=== PATIENT | female | born 1950 | race Caucasian/White ===

== ENCOUNTER 2017-12-27 12:48 | Outpatient (CLI) | payer MEDICARE ==
--- NOTE | 2017-12-28 13:43 | Magnetic Resonance Report ---
BILATERAL BREAST MRI WITHOUT AND WITH CONTRAST: 12/27/17 12:48:00 CLINICAL: Newly diagnosed right breast cancer. COMPARISON:Recent mammograms and right breast ultrasound from [facility] and [facility]. TECHNIQUE: Axial 1.0-mm T1 without, axial high resolution 2.0-mm T2 and axial 1.0-mm dynamic Vibrant high-resolution postcontrast T1 fat saturation sequences on a 1.5 Lucila magnet. The examination was performed with an 8 channel dedicated [place] breast coil. Post processing with CAD and subtraction was performed on an [employer] workstation. 20.0 cc of Multihance was injected without incident for the contrast portion of the exam. Consent was obtained prior to the administration of the contrast. FINDINGS: Right: Minimal background parenchymal enhancement. The known cancer is an irregular enhancing mass at 2 o'clock 6.0 cm from the nipple measuring 11.9 x 8.0 x 7.7 mm. It demonstrates heterogeneous enhancement with mixed kinetics, 121% peak enhancement, 14% type I persistent, 56% type II plateau and 30% type III washout waveforms. A biopsy clip is identified adjacent to the mass. No other mass or suspicious enhancement of the right breast. A moderate degree of edema is identified anterior to and within the right pectoral muscle in the upper portion of the breast. No skin thickening of the breast. At least 2 suspicious right axillary lymph nodes. A 2.3 cm lymph node with central fat but asymmetric cortical thickening of 6 mm. A second lymph node measures only 1.6 cm with no central fatty hilum. Left: Minimal background parenchymal enhancement. No mass. However, suspicious stippled non-Mass enhancement in the central breast which extends for a maximum length of 14 mm. There is no mammographic correlate for this lesion. No other suspicious enhancement. A suspicious left level I axillary lymph node has minimal central fat and asymmetric cortical thickening of 7 mm. IMPRESSION: 1. A known 12 mm right breast cancer. 2. Suspicious non-Mass enhancement of the left breast which would be amenable to MRI guided needle biopsy. 3. Bilateral suspicious axillary lymph nodes. RECOMMENDATION: MRI guided needle biopsy of the left breast and bilateral ultrasound guided axillary lymph node biopsies. RIGHT BI-RADS 6 -- Known Cancer LEFT BI-RADS 4 -- Suspicious
== END 2017-12-27 12:49 | disposition home or self-care (01) ==
LOC: SPVIMAG 12:48
PROVIDERS: ATTEND Surgery
DX: C50.911 Malignant neoplasm of unspecified site of right female breast (principal)
CPT/HCPCS: A9577; C8908; 77059

== ENCOUNTER 2018-01-06 13:43 | Outpatient (CLI) | payer MEDICARE ==
--- NOTE | 2018-01-06 16:28 | Ultrasound Report ---
ULTRASOUND GUIDED NEEDLE CORE BIOPSY OF A AXILLARY LYMPH NODE WITH CLIP PLACEMENT : 01/06/18 13:43:00 CLINICAL: Newly diagnosed right breast cancer and suspicious bilateral axillary lymph nodes. COMPARISON :12/27/17 MRI FINDINGS: The procedure was explained to the patient and informed consent was obtained. Ultrasound demonstrated a suspicious lymph node. The skin in the axilla was prepped with Betadine and anesthetized with 1% lidocaine. Ultrasound guided needle core biopsy of the lymph node was performed through a small dermatotomy using 2% lidocaine with epinephrine for deep anesthesia and a 18-gauge Achieve biopsy device. 2 samples were obtained and placed in formalin. A clip was deployed within the lymph node. Hemostasis was achieved with minimal pressure and a sterile dressing was applied. The patient tolerated the procedure well and there were no apparent complications. She was discharged in good condition and was given instructions for wound care and followup. IMPRESSION: Uncomplicated ultrasound-guided needle core biopsy of a left axillary lymph node with clip placement.
== END 2018-01-06 13:44 | disposition home or self-care (01) ==
LOC: SPVWC 13:43
PROVIDERS: ATTEND Surgery
DX: C50.911 Malignant neoplasm of unspecified site of right female breast (principal)
CPT/HCPCS: 38505; 76942; 88305

== ENCOUNTER 2018-08-08 14:17 | Outpatient (CLI) | payer MEDICARE ==
--- NOTE | 2018-08-08 15:11 | Mammography Report ---
Bilateral mammogram: Compared to December 2017. CAD study utilized. Findings Predominance adipose tissue bilaterally. Benign appearing density adjacent to the chest wall without significant interval change. Surgical clips appear stable. Skin thickening probably related to previous surgery/radiation. Left breast appears unremarkable. Impression: Probably benign findings. Six-month followup recommended. BI-RADS CATEGORY: 3 = Probably benign ACR BI-RADS MAMMOGRAPHIC CODES: 0 = Needs additional imaging evaluation; 1 = Negative; 2 = Benign; 3 = Probably benign; 4 = Suspicious; 5 = Malignant; 6 = Known biopsy-proven malignancy COMMENT: 1. Dense breast tissue, i.e., adenosis, fibrocystic changes, etc., may obscure an underlying neoplasm. 2. Approximately 10% of cancers are not detected with mammography. 3. A negative mammography report should not delay biopsy if a clinically suspicious mass is present. COMMENT: Patient follow-up letters are generated in [employer].
== END 2018-08-08 14:18 | disposition home or self-care (01) ==
LOC: SPVWC 14:17
PROVIDERS: ATTEND Surgery
DX: R92.8 Other abnormal and inconclusive findings on diagnostic imaging of breast (principal)
CPT/HCPCS: 77066

== ENCOUNTER 2018-11-24 08:09 | Outpatient (CLI) | payer MEDICARE ==
--- NOTE | 2018-11-24 11:15 | Ultrasound Report ---
ULTRASOUND GUIDED NEEDLE CORE BIOPSY LEFT BREAST WITH CLIP PLACEMENT: 11/24/18 09:30:00 CLINICAL: Palpable left breast mass in a patient with a history of right breast cancer. Dr. Moses identified a mass by ultrasound at 4:30 o'clock 11 cm from the nipple. COMPARISON :11/09/18 mammogram. FINDINGS: The procedure was explained to the patient and informed consent was obtained. Ultrasound demonstrated a heterogeneous mass at 4:30 o'clock 11 cm from the nipple. I marked the breast with a felt tip marker and a time out was called. The skin was prepped with Betadine and anesthetized with 1% lidocaine. Needle core biopsy was performed through a tiny dermatotomy using ultrasound guidance, 2% lidocaine with epinephrine for deep anesthesia and a 14-gauge Achieve biopsy device. 4 cores were obtained and placed in formalin. A clip was deployed within the mass. The patient tolerated the procedure well and there were no apparent complications. Hemostasis was achieved with minimal pressure and a sterile dressing was applied. A post procedure mammogram was not performed since the patient cannot sit up for mammogram. She left the department in good condition and was given instructions for wound care and followup. IMPRESSION: Uncomplicated ultrasound guided needle core biopsy with clip placement left breast.
== END 2018-11-24 08:10 | disposition home or self-care (01) ==
LOC: SPVWC 08:09
PROVIDERS: ATTEND Surgery
DX: N63.23 Unspecified lump in the left breast, lower outer quadrant (principal); R92.1 Mammographic calcification found on diagnostic imaging of breast; N64.89 Other specified disorders of breast; Z85.3 Personal history of malignant neoplasm of breast
CPT/HCPCS: 88305; 88342

== ENCOUNTER 2019-07-24 12:58 | Outpatient (CLI) | payer MEDICARE ==
--- NOTE | 2019-07-24 15:00 | Mammography Report ---
BILATERAL DIGITAL DIAGNOSTIC MAMMOGRAM WITH CAD 07/24/2019 BILATERAL COMPLETE BREAST ULTRASOUND INDICATION: Wheelchair bound with a history of right breast cancer status post partial mastectomy. Sh chasity had an ultrasound-guided left breast biopsy on 11/24/2018 with nonspecific benign pathology. TECHNIQUE: Digital bilateral mammographic imaging was performed with the patient in her wheelchair. Complete ultrasound of all four (4) quadrants was performed. This examination was interpreted with dee gaspar benefit of Computer-Aided Detection (CAD) analysis. COMPARISON: 11/09/2018 bilateral mammogram and 11/24/2018 left breast ultrasound FINDINGS: Breast Density: The breasts are heterogeneously dense, which may obscure small masses. MAMMOGRAPHIC FINDINGS: There is no evidence of dominant mass, suspicious calcifications or architectu ral distortion in either breast. Extensive bilateral benign calcifications. Right inner postsurgical scar with surgical clips. ULTRASOUND FINDINGS: Complete sonographic evaluation of all 4 quadrants and retroareolar region was p erformed. Ultrasound of the right breast demonstrated an irregular solid hypoechoic shadowing mass with calcifications at 11:00 5 cm from the nipple. It measures 6 x 4 x 3 mm and appears to correlate with a heavily calcified mass on the mammogram. No other significant finding of the right breast. Ult rasound of the left breast demonstrated a palpable bilobed solid heterogeneous hypoechoic shadowing m ass at 4:00 11 cm from the nipple. This correlates with the palpable mass which was previously biopsi ed. However, it appears more masslike on this exam and measures approximately 2.3 x 1.6 cm. There velma eared to be associated calcifications. This mass is so far posterior that it is not likely apparent o n the mammogram. There is a possible biopsy clip adjacent to it. IMPRESSION: 1. A suspicious shadowing palpable left breast mass at 4:00 11 cm from the nipple. This may or may no t represent the lesion that was previously biopsied. Recommend ultrasound-guided needle core biopsy. 2. Negative right breast. Follow up recommendation: Biopsy BI-RADS Category 4: Suspicious for Malignancy. A "normal" or negative report should not discourage follow up or biopsy of a clinically significant f inding. A written summary of these findings will be mailed to the patient. The patient will be entered into a mammography reporting system which will generate a reminder letter for the patient's next appointmen t at the appropriate interval. According to the [employer], yearly mammograms are recommended starting at age 40 and continuing as long as a woman is in good health. Breast MRI is recommended for women with an velma roximately 20-25% or greater lifetime risk of breast cancer, including women with a strong family his tory of breast or ovarian cancer and women who have been treated for Hodgkin's disease. Signer Name: Justo Walker MD Signed: 07/24/2019 2:55 PM Workstation Name: [id number]
== END 2019-07-24 12:59 | disposition home or self-care (01) ==
LOC: SPVWC 12:58
PROVIDERS: ATTEND Surgery
DX: N63.11 Unspecified lump in the right breast, upper outer quadrant (principal); Z90.11 Acquired absence of right breast and nipple
CPT/HCPCS: 77066

== ENCOUNTER 2019-08-09 09:15 | Outpatient (CLI) | payer MEDICARE ==
--- NOTE | 2019-08-09 11:10 | Ultrasound Report ---
ULTRASOUND-GUIDED NEEDLE CORE BIOPSY AT 2 SITES RIGHT BREAST WITH CLIP PLACEMENT CLINICAL: Solid hypoechoic shadowing masses at 9:00 10 cm from the nipple and at 8:00 13 cm from the nipple. FINDINGS: The procedure was explained to the patient and informed consent was obtained. Ultrasound demonstrated the masses identified by Dr. Moses. I marked the breast with a felt tip marker and a timeout was called. The skin was prepped with Chloro -Prep and anesthetized with 1% lidocaine at both sites. Needle core biopsies were performed through small dermatotomies using ultrasound guidance, 2% lidocai ne with epinephrine for deep anesthesia and a 14-gauge Achieve biopsy device. The mass at 9:00 was sa mpled first and labeled as #1. 4 cores were obtained and placed in formalin. A Hydromark clip was dep loyed within the mass. The mass at 8:00 was then sampled and labeled as #2. 4 cores were obtained and placed in formalin. A Hydromark clip was deployed within the mass. The patient tolerated the procedure well and there were no apparent complications. Hemostasis was ach ieved with minimal effort and a sterile dressing was applied. A post procedure mammogram was not obtained since both masses appear to be out of the window for mamm ographic imaging. She left the department in good condition and was given instructions for wound care and follow-up. IMPRESSION: Uncomplicated ultrasound guided needle core biopsy with clip placement at 2 sites right b reast. Signer Name: Justo Wlaker MD Signed: 08/09/2019 11:06 AM Workstation Name: [id number]
== END 2019-08-09 09:16 | disposition home or self-care (01) ==
LOC: SPVWC 09:15
PROVIDERS: ATTEND Surgery
DX: N63.13 Unspecified lump in the right breast, lower outer quadrant (principal); N63.11 Unspecified lump in the right breast, upper outer quadrant; R92.0 Mammographic microcalcification found on diagnostic imaging of breast; N64.89 Other specified disorders of breast
CPT/HCPCS: 88305; 88342